=== PATIENT | female | born 1965 | race Caucasian/White ===

== ENCOUNTER 2017-05-18 10:00 | Emergency (ER) | payer BC, OTHER ==
[2017-05-18] MEDS ORDERED: METOCLOPRAMIDE HCL 10 MG TABLET PO ONE (10:37)
[2017-05-18] MEDS ORDERED: KETOROLAC TROMETHAMINE 60 MG/2 ML SDV IM ONE (10:37)
--- NOTE | 2017-05-18 10:39 | ER Document Report ---
ED General - General Chief Complaint: Flank Pain Stated Complaint: URINARY SYMPTOMS Time Seen by Provider: 05/18/17 10:29 Mode of Arrival: Ambulatory Information source: Patient Notes: 52-year-old female presents with complaints of right flank pain with hematuria. Patient notes she was diagnosed with a UTI a few days prior was placed on Bactrim. She denies any fevers admits to nausea TRAVEL OUTSIDE OF THE [place] IN LAST 30 DAYS: No - HPI Onset: Last week Onset/Duration: Persistent Quality of pain: Achy Severity: Mild Pain Level: 1 Associated symptoms: Nausea Exacerbated by: Supine Relieved by: Denies Similar symptoms previously: Yes Recently seen / treated by doctor: Yes - Related Data Allergies/Adverse Reactions: bacitracin [From Neosporin] Allergy (Verified 05/18/17 10:05) bacitracin zinc [From Neosporin] Allergy (Verified 05/18/17 10:05) codeine [Codeine] Allergy (Verified 05/18/17 10:05) gramicidin D [From Neosporin] Allergy (Verified 05/18/17 10:05) neomycin sulfate [From Neosporin] Allergy (Verified 05/18/17 10:05) polymyxin B [From Neosporin] Allergy (Verified 05/18/17 10:05) polymyxin B sulfate [From Neosporin] Allergy (Verified 05/18/17 10:05) Past Medical History - Social History Smoking Status: Never Smoker Cigarette use (# per day): No Chew tobacco use (# tins/day): No Smoking Education Provided: No Frequency of alcohol use: None Drug Abuse: None Family History: Reviewed & Not Pertinent Renal/ Medical History: Denies: Hx Peritoneal Dialysis Past Surgical History: Reports: Hx Cholecystectomy, Hx Hysterectomy - Immunizations Hx Diphtheria, Pertussis, Tetanus Vaccination: Yes Review of Systems - Review of Systems Notes: REVIEW OF SYSTEMS: CONSTITUTIONAL : Denies fever, chills, or sweats. Denies recent illness. EENT: Denies eye, ear, throat, or mouth pain or symptoms. Denies nasal or sinus congestion or discharge. Denies throat, tongue, or mouth swelling or difficulty swallowing. CARDIOVASCULAR: Denies chest pain. Denies palpitations or racing or irregular heart beat. Denies ankle edema. RESPIRATORY: Denies cough, cold, or chest congestion. Denies shortness of breath, difficulty breathing, or wheezing. GASTROINTESTINAL: D admits to right flank pain GENITOURINARY: Admits to blood in the urine FEMALE GENITOURINARY: Denies vaginal bleeding, heavy or abnormal periods, irregular periods. Denies vaginal discharge or odor. MUSCULOSKELETAL: Denies back or neck pain or stiffness. Denies joint pain or swelling. SKIN: Denies rash, lesions or sores. HEMATOLOGIC : Denies easy bruising or bleeding. LYMPHATIC: Denies swollen, enlarged glands. NEUROLOGICAL: Denies confusion or altered mental status. Denies passing out or loss of consciousness. Denies dizziness or lightheadedness. Denies headache. Denies weakness or paralysis or loss of use of either side. Denies problems with gait or speech. Denies sensory loss, numbness, or tingling. Denies seizures. PSYCHIATRIC: Denies anxiety or stress. Denies depression, suicidal ideation, or homicidal ideation. ALL OTHER SYSTEMS REVIEWED AND NEGATIVE. PHYSICAL EXAMINATION: GENERAL: Well-appearing, well-nourished and in no acute distress. HEAD: Atraumatic, normocephalic. EYES: Pupils equal round and reactive to light, extraocular movements intact, conjunctiva are normal. ENT: Nares patent, oropharynx clear without exudates. Moist mucous membranes. NECK: Normal range of motion, supple without lymphadenopathy LUNGS: Breath sounds clear to auscultation bilaterally and equal. No wheezes rales or rhonchi. HEART: Regular rate and rhythm without murmurs ABDOMEN: Soft, nontender, nondistended abdomen. No guarding, no rebound. No masses appreciated. Patient has positive right CVA tenderness Female : deferred Musculoskeletal: Normal range of motion, no pitting or edema. No cyanosis. NEUROLOGICAL: Cranial nerves grossly intact. Normal speech, normal gait. Normal sensory, motor exams PSYCH: Normal mood, normal affect. SKIN: Warm, Dry, normal turgor, no rashes or lesions noted. Dictation was performed using [employer] voice recognition software Physical Exam - Vital signs Vitals: Temp Pulse Resp BP Pulse Ox 98.4 F 72 18 119/77 99 05/18/17 10:05 05/18/17 10:05 05/18/17 10:05 05/18/17 10:05 05/18/17 10:05 Course - Re-evaluation Re-evalutation: 05/18/17 10:39 Patient has probable pyelonephritis given her complaints, CT is pending to rule out an infected stone otherwise she looks quite well vital signs are stable 05/18/17 12:05 Patient has positive nitrites CT is normal We will treat with Cipro culture urine After performing a Medical Screening Examination, I estimate there is LOW risk for ACUTE APPENDICITIS, BOWEL OBSTRUCTION, ACUTE CHOLECYSTITIS, PERFORATED DIVERTICULITIS, INCARCERATED HERNIA, PANCREATITIS, PELVIC INFLAMMATORY DISEASE, PERFORATED ULCER, ECTOPIC , or TUBO-OVARIAN ABSCESS, thus I consider the discharge disposition reasonable. Also, there is no evidence or peritonitis , sepsis, or toxicity. I have reevaluated this patient multiple times and no significant life threatening changes are noted. The patient and I have discussed the diagnosis and risks, and we agree with discharging home with close follow-up with the understanding that symptoms and presentations can change. We also discussed returning to the Emergency Department immediately if new or worsening symptoms occur. We have discussed the symptoms which are most concerning (e.g., bloody stool, fever, changing or worsening pain, vomiting) that necessitate immediate return. - Vital Signs Vital signs: Temp Pulse Resp BP Pulse Ox 98.4 F 72 18 119/77 99 05/18/17 10:05 05/18/17 10:05 05/18/17 10:05 05/18/17 10:05 05/18/17 10:05 - Laboratory Laboratory results interpreted by me: 05/18/17 10:45 Urine Nitrite POSITIVE H Urine Urobilinogen 4.0 H - Diagnostic Test Radiology reviewed: Image reviewed, Reports reviewed - no acute abnormality Discharge - Discharge Clinical Impression: Pyelonephritis, Flank pain Condition: Stable Disposition: HOME, SELF-CARE Instructions: Pyelonephritis ([facility]) Additional Instructions: Follow up with your physician tomorrow for further care or return to the ED IMMEDIATELY if symptoms worsen or new concerns occur. If you cannot afford to follow up with your primary care physician a list of low cost clinics have been provided at the end of your discharge papers as well. Prescriptions: Ciprofloxacin HCl [Cipro 500 mg Tablet] 500 mg PO BID #20 tablet Hydrocodone/Acetaminophen [Eldred 5-325 mg Tablet] 1 tab PO Q6 #10 tablet
[2017-05-18 11:28] LABS: APPEARANCE,URINE CLEAR; BILIRUBIN,URINE NEGATIVE (NEGATIVE); GLUCOSE, URINE NEGATIVE (NEGATIVE); KETONES,URINE NEGATIVE (NEGATIVE); LEUKOCYTE ESTERASE,URINE NEGATIVE (NEGATIVE); NITRITE,URINE POSITIVE (NEGATIVE); PROTEIN,URINE NEGATIVE (NEGATIVE); URINE SPECIFIC GRAVITY 1.015
--- NOTE | 2017-05-18 12:03 | RADIOLOGY REPORT (SQ) ---
EXAM DESCRIPTION: CT LTD RENAL STONE PROTOCOL ON COMPLETED DATE/TIME: 05/18/2017 11:06 am REASON FOR STUDY: right flank pain, dx of uti COMPARISON: CT abdomen pelvis 12/28/2013 TECHNIQUE: CT scan of the abdomen and pelvis performed without intravenous or oral contrast. Images reviewed with lung, soft tissue, and bone windows. Reconstructed coronal and sagittal MPR images revi ewed. All images stored on PACS. All CT scanners at this facility use dose modulation, iterative reconstruction, and/or weight based d osing when appropriate to reduce radiation dose to as low as reasonably achievable (ALARA). [facility]: Dose Right [facility]: CareDose [facility]: Dose Right [facility]: Teradose 4D [facility]: Smart 4tiitoo RADIATION DOSE: Up-to-date CT equipment and radiation dose reduction techniques were employed. CTDIv ol: 7.4 mGy. DLP: 398 mGy-cm.mGy. LIMITATIONS: None. FINDINGS: LOWER CHEST: No significant findings. No nodules or infiltrates. NON-CONTRASTED LIVER, SPLEEN, ADRENALS: Evaluation limited by lack of IV contrast. No identified sign ificant masses. PANCREAS: No masses. No peripancreatic inflammatory changes. GALLBLADDER: Surgically absent RIGHT KIDNEY AND URETER: No suspicious masses. Assessment limited by lack of IV contrast. No signif icant calcifications. No hydronephrosis or hydroureter. LEFT KIDNEY AND URETER: No suspicious masses. Assessment limited by lack of IV contrast. No signifi cant calcifications. No hydronephrosis or hydroureter. AORTA AND RETROPERITONEUM: No aneurysm. No retroperitoneal masses or adenopathy. BOWEL AND PERITONEAL CAVITY: No obvious masses or inflammatory changes. No free fluid. APPENDIX: Normal. PELVIS, BLADDER, AND ABDOMINAL WALL:No abnormal masses. No free fluid. Bladder normal. Post hysterec manuel BONES: No significant findings. OTHER: No other significant finding. IMPRESSION: NO SIGNIFICANT OR ACUTE PROCESS IN THE ABDOMEN OR PELVIS. COMMENT: Quality ID # [id number]: Final reports with documentation of one or more dose reduction techniques (e.g., Automated exposure control, adjustment of the mA and/or kV according to patient size, use of iterative reconstruction technique) TECHNICAL DOCUMENTATION: JOB ID: [id number]- All Rights Reserved
[2017-05-18 12:35] VITALS: BP 119/66
== END 2017-05-18 12:10 | disposition home or self-care (01) ==
LOC: ER 10:00
DX: N12 Tubulo-interstitial nephritis, not specified as acute or chronic (principal); R10.9 Unspecified abdominal pain; R39.198 Other difficulties with micturition; R31.9 Hematuria, unspecified
CPT/HCPCS: 99284; 96372; 87086; 81025; 81001; 76380; J1885

== ENCOUNTER → 2018-03-10 | Outpatient (CLI) | payer OTHER ==
[2018-03-10 14:34] LABS: ABSOLUTE EOSINOPHILS # (AUTO) 0.1 10^3/uL (0.0-0.6); ABSOLUTE LYMPHOCYTES (AUTO) 2.3 10^3/uL (0.5-4.7); ABSOLUTE MONOCYTES (AUTO) 0.4 10^3/uL (0.1-1.4); ABSOLUTE NEUT (AUTO) 3.5 10^3/uL (1.7-8.2); BASOPHILS % (AUTO) 0.6 % (0-2); EOSINOPHILS % (AUTO) 1.6 % (0-6); HEMOGLOBIN 14.7 g/dL (12.0-15.5); LYMPHOCYTES % (AUTO) 35.6 % (13-45); MEAN CORPUSCULAR HEMOGLOBIN 27.8 pg (27.0-33.4); MEAN CORPUSCULAR HGB CONC 34.2 g/dL (32.0-36.0); MEAN CORPUSCULAR VOLUME 81 fl (80-97); MONOCYTES % (AUTO) 6.7 % (3-13); PLATELET COUNT 203 10^3/uL (150-450); RED BLOOD COUNT 5.28 10^6/uL (3.72-5.28); RED CELL DISTRIBUTION WIDTH 13.4 % (11.5-14.0); SEGMENTED NEUTROPHILS % (AUTO) 55.5 % (42-78); TOTAL CELLS COUNTED % (AUTO) 100 %; WHITE BLOOD COUNT 6.4 10^3/uL (4.0-10.5)
--- NOTE | 2018-03-10 14:35 | RADIOLOGY REPORT (SQ) ---
EXAM DESCRIPTION: CHEST PA/LATERAL COMPLETED DATE/TIME: 03/10/2018 2:27 pm REASON FOR STUDY: CHEST PAIN; HEART PALPITATIONS COMPARISON: None. EXAM PARAMETERS: NUMBER OF VIEWS: two views TECHNIQUE: Digital Frontal and Lateral radiographic views of the chest acquired. RADIATION DOSE: NA LIMITATIONS: none FINDINGS: LUNGS AND PLEURA: No opacities, masses or pneumothorax. No pleural effusion. MEDIASTINUM AND HILAR STRUCTURES: No masses or contour abnormalities. HEART AND VASCULAR STRUCTURES: Heart normal size. No evidence for failure. BONES: No acute findings. HARDWARE: None in the chest. OTHER: No other significant finding. IMPRESSION: NO SIGNIFICANT RADIOGRAPHIC FINDING IN THE CHEST. TECHNICAL DOCUMENTATION: JOB ID: [id number] [employer]- All Rights Reserved Reading location - IP/workstation name: [email or web address]
[2018-03-10 14:47] LABS: ALANINE AMINOTRANSFERASE 19 U/L (9-52); ALKALINE PHOSPHATASE 61 U/L (38-126); ANION GAP 13 (5-19); ASPARTATE AMINO TRANSFERASE 15 U/L (14-36); BILIRUBIN,DIRECT 0.2 mg/dL (0.0-0.4); BILIRUBIN,TOTAL 0.4 mg/dL (0.2-1.3); BLOOD UREA NITROGEN 11 mg/dL (7-20); CALCIUM 9.2 mg/dL (8.4-10.2); CARBON DIOXIDE 25 mmol/L (22-30); CHLORIDE 106 mmol/L (98-107); GLUCOSE 88 mg/dL (75-110); POTASSIUM 4.1 mmol/L (3.6-5.0); SODIUM 144.3 mmol/L (137-145); TOTAL PROTEIN 6.5 g/dL (6.3-8.2)
[2018-03-10 14:57] LABS: CREATINE KINASE MB 0.56 ng/mL (<4.55); TROPONIN I < 0.012 ng/mL
== END ==
LOC: OD 13:54
PROVIDERS: ATTEND Nurse Practitioner Primary Care
DX: R07.9 Chest pain, unspecified (principal); R00.2 Palpitations
CPT/HCPCS: 36415; 71046; 80053; 82553; 84484; 85025

== ENCOUNTER → 2019-02-28 | Outpatient (CLI) | payer OTHER ==
--- NOTE | 2019-02-28 14:03 | RADIOLOGY REPORT (SQ) ---
EXAM DESCRIPTION: SACROILIAC JOINTS 3 OR MORE COMPLETED DATE/TIME: 02/28/2019 1:41 pm REASON FOR STUDY: M46.1 SACROILIITIS, NOT ELSEWHERE CLASSIFIED M46.1 SACROILIITIS, NOT ELSEWHERE CL ASSIFIED M25.551 PAIN IN RIGHT HIP R26.2 DIFFICULTY IN WALKING, NOT ELSEWHERE CLASSIFIED COMPARISON: Right hip films 02/28/2019 Lumbar spine films 02/28/2019 CT abdomen pelvis 05/18/2017 NUMBER OF VIEWS: Three views. TECHNIQUE: AP and oblique views of the sacroiliac joints. LIMITATIONS: None. FINDINGS: MINERALIZATION: Osteopenic. BONES: No acute fracture or dislocation. No worrisome bone lesions. No significant osteophytes. JOINTS: The sacroiliac joints are patent. No unusual widening, sclerosis, or fusion. SOFT TISSUES: No soft tissue swelling. No radio-opaque foreign body. OTHER: No other significant finding. IMPRESSION: NORMAL STUDY OF THE SACROILIAC JOINTS. TECHNICAL DOCUMENTATION: JOB ID: [id number] [employer]- All Rights Reserved Reading location - IP/workstation name: [email or web address]
--- NOTE | 2019-02-28 14:05 | RADIOLOGY REPORT (SQ) ---
EXAM DESCRIPTION: HIP RIGHT AP/LATERAL COMPLETED DATE/TIME: 02/28/2019 1:44 pm REASON FOR STUDY: M25.551 PAIN IN RIGHT HIP M46.1 SACROILIITIS, NOT ELSEWHERE CLASSIFIED M25.551 P AIN IN RIGHT HIP R26.2 DIFFICULTY IN WALKING, NOT ELSEWHERE CLASSIFIED COMPARISON: Sacrum and SI joints, lumbar spine plain films same date NUMBER OF VIEWS: Two views. TECHNIQUE: AP pelvis and additional frog-leg view of the right hip. LIMITATIONS: None. FINDINGS: MINERALIZATION: Osteopenic RIGHT HIP: No fracture or dislocation. No worrisome bone lesions. No significant joint space narrow ing or bulky bony spurring. LEFT HIP: No fracture or dislocation. No worrisome bone lesions. No significant joint space narrowi ng or bulky bony spurring. PUBIS AND ISCHIUM: No fracture. PELVIS: No fracture. SACRUM: No fracture or dislocation. No worrisome bone lesions. SOFT TISSUES: No findings. OTHER: No other significant finding. IMPRESSION: NEGATIVE STUDY OF THE RIGHT HIP. NO RADIOGRAPHIC EVIDENCE OF ACUTE INJURY. TECHNICAL DOCUMENTATION: JOB ID: [id number] [employer]- All Rights Reserved Reading location - IP/workstation name: [email or web address]
--- NOTE | 2019-02-28 14:06 | RADIOLOGY REPORT (SQ) ---
EXAM DESCRIPTION: L SPINE WHOLE COMPLETED DATE/TIME: 02/28/2019 1:44 pm REASON FOR STUDY: M46.1 SACROILIITIS, NOT ELSEWHERE CLASSIFIED M46.1 SACROILIITIS, NOT ELSEWHERE CL ASSIFIED M25.551 PAIN IN RIGHT HIP R26.2 DIFFICULTY IN WALKING, NOT ELSEWHERE CLASSIFIED COMPARISON: SI joints, hip films same date NUMBER OF VIEWS: Five views including obliques. TECHNIQUE: AP, lateral, oblique, and sacral radiographic images acquired of the lumbar spine. LIMITATIONS: None. FINDINGS: MINERALIZATION: Osteopenic SEGMENTATION: Normal. No transitional anatomy. ALIGNMENT: Normal. VERTEBRAE: Maintained height. No fracture or worrisome bone lesion. DISCS: Preserved height. No significant osteophytes or end plate irregularity. POSTERIOR ELEMENTS: Pedicles and facets are intact. No pars defect or posterior arch defects. Mild bilateral facet arthropathy at L4-5 and L5-S1 HARDWARE: None in the spine. PARASPINAL SOFT TISSUES: Clips right upper quadrant post cholecystectomy OTHER: No other significant finding. IMPRESSION: Lower lumbar facet arthropathy at L4-5 and L5-S1 TECHNICAL DOCUMENTATION: JOB ID: [id number] [employer]- All Rights Reserved Reading location - IP/workstation name: [email or web address]
== END ==
LOC: RAD 12:38
PROVIDERS: ATTEND Nurse Practitioner Primary Care
DX: M46.1 Sacroiliitis, not elsewhere classified (principal); M25.551 Pain in right hip; R26.2 Difficulty in walking, not elsewhere classified
CPT/HCPCS: 72110; 72202

== ENCOUNTER 2019-10-10 16:09 | Emergency (ER) | payer OTHER ==
[2019-10-10 16:46] VITALS: BP 120/74
--- NOTE | 2019-10-10 17:10 | ER Document Report ---
ED ENT - General Chief Complaint: Fever Stated Complaint: FEVER,EAR PAIN Time Seen by Provider: 10/10/19 16:26 Primary Care Provider: ANABELA GANDHI NP [Primary Care Provider] - Follow up as needed Mode of Arrival: Ambulatory Information source: Patient Notes: 54-year-old female presented to ED for complaint of cough cold congestion with fluid behind the right eardrum. She states she was just seen at her primary care doctor and treated for pneumonia was amoxicillin. She states she has 2 pills left and then she will be completed the antibiotics. She does have cough and cold. Lung sounds are clear to auscultation respirations are regular nonlabored vital signs are stable. She states she went to the primary care doctor he told her that that was all he could do for her that if she wanted to get tested for viruses she would need to go to the emergency room. I have explained to her even if she was positive for flu that it is past the time when she could get treated for that that now it is just symptom control. TRAVEL OUTSIDE OF THE [place] IN LAST 30 DAYS: No - HPI Patient complains to provider of: Ear problem, Nose problem, Throat problem Onset: Last week Onset/Duration: Persistent Quality of pain: Achy Severity: Moderate Pain Level: 3 Context: Recent Illness Location of pain: Ears, Sinus, Throat Associated symptoms: Congestion, Cough, Ear pain, Runny nose, Sinus pain, Sinus drainage, Sore throat Similar symptoms previously: Yes Recently seen / treated by doctor: Yes - Related Data Allergies/Adverse Reactions: bacitracin [From Neosporin] Allergy (Verified 10/10/19 17:07) bacitracin zinc [From Neosporin] Allergy (Verified 10/10/19 17:07) gramicidin D [From Neosporin] Allergy (Verified 10/10/19 17:07) neomycin sulfate [From Neosporin] Allergy (Verified 10/10/19 17:07) polymyxin B [From Neosporin] Allergy (Verified 10/10/19 17:07) polymyxin B sulfate [From Neosporin] Allergy (Verified 10/10/19 17:07) codeine [Codeine] Adverse Reaction (Intermediate, Verified 10/10/19 17:07) GI upset Past Medical History - General Information source: Patient - Social History Smoking Status: Never Smoker Frequency of alcohol use: None Drug Abuse: None Lives with: Family Family History: Reviewed & Not Pertinent Patient has suicidal ideation: No Patient has homicidal ideation: No - Past Medical History Cardiac Medical History: Reports: None Pulmonary Medical History: Reports: Hx Bronchitis, Hx Pneumonia EENT Medical History: Reports: None Neurological Medical History: Reports: None Endocrine Medical History: Reports: None Renal/ Medical History: Reports: None Malignancy Medical History: Reports: None GI Medical History: Reports: None Musculoskeletal Medical History: Reports Hx Arthritis, Reports Hx Musculoskeletal Deformity, Reports Hx Musculoskeletal Trauma Skin Medical History: Reports None Psychiatric Medical History: Reports: None Traumatic Medical History: Reports: Hx Fractures - Wrist toes Infectious Medical History: Reports: None Past Surgical History: Reports: Hx Cholecystectomy, Hx Gynecologic Surgery - Endometriosis, Hx Hysterectomy, Hx Oral Surgery - TMJ, Hx Orthopedic Surgery - Finger surgery - Immunizations Hx Diphtheria, Pertussis, Tetanus Vaccination: Yes Review of Systems - Review of Systems Constitutional: Chills, Recent illness EENT: Nose congestion, Nose discharge, Sinus pressure, Sinus discharge, Throat pain Cardiovascular: No symptoms reported Respiratory: Cough Gastrointestinal: No symptoms reported Genitourinary: No symptoms reported Female Genitourinary: No symptoms reported Musculoskeletal: No symptoms reported Skin: No symptoms reported Hematologic/Lymphatic: No symptoms reported Neurological/Psychological: No symptoms reported -: Yes All other systems reviewed and negative Physical Exam - Vital signs Vitals: Temp Pulse Resp BP Pulse Ox 98.8 F 77 20 120/74 99 10/10/19 16:45 10/10/19 16:45 10/10/19 16:45 10/10/19 16:45 10/10/19 16:45 Interpretation: Normal - General General appearance: Appears well, Alert - HEENT Head: Normocephalic, Atraumatic Eyes: Normal Pupils: PERRL Ears: Normal External canal: Normal Tympanic membrane: Normal Sinus: Normal Nasal: Purulent discharge, Swelling Mouth/Lips: Normal Mucous membranes: Normal Pharynx: Post nasal drainage Neck: Normal - Respiratory Respiratory status: No respiratory distress Chest status: Nontender Breath sounds: Nonproductive cough Chest palpation: Normal - Cardiovascular Rhythm: Regular Heart sounds: Normal auscultation Murmur: No - Abdominal Inspection: Normal Distension: No distension Bowel sounds: Normal Tenderness: Nontender Organomegaly: No organomegaly - Back Back: Normal, Nontender - Extremities General upper extremity: Normal inspection, Nontender, Normal color, Normal ROM, Normal temperature General lower extremity: Normal inspection, Nontender, Normal color, Normal ROM, Normal temperature, Normal weight bearing. No: Katt's sign - Neurological Neuro grossly intact: Yes Cognition: Normal Orientation: AAOx4 [place] Coma Scale Eye Opening: Spontaneous [place] Coma Scale Verbal: Oriented [place] Coma Scale Motor: Obeys Commands [place] Coma Scale Total: 15 Speech: Normal Motor strength normal: LUE, RUE, LLE, RLE Sensory: Normal - Psychological Associated symptoms: Normal affect, Normal mood - Skin Skin Temperature: Warm Skin Moisture: Dry Skin Color: Normal Course - Re-evaluation Re-evalutation: 10/10/19 17:16 After performing a Medical Screening Examination, I estimate there is LOW risk for ACUTE CORONARY SYNDROME, RESPIRATORY FAILURE, SEPSIS OR MENINGITIS, thus I consider the discharge disposition reasonable. I have reevaluated this patient multiple times and no significant life threatening changes are noted. The patient and I have discussed the diagnosis and risks, and we agree with discharging home with close follow-up. We also discussed returning to the Emergency Department immediately if new or worsening symptoms occur. We have discussed the symptoms which are most concerning (e.g., changing or worsening pain, trouble swallowing or breathing, neck stiffness, fever) that necessitate immediate return. - Vital Signs Vital signs: Temp Pulse Resp BP Pulse Ox 98.8 F 77 20 120/74 99 10/10/19 16:45 10/10/19 16:45 10/10/19 16:45 10/10/19 16:45 10/10/19 16:45 Discharge - Discharge Clinical Impression: Otalgia of right ear, Viral sore throat URI (upper respiratory infection) Qualifiers: URI type: unspecified viral URI Qualified Code(s): J06.9 - Acute upper respiratory infection, unspecified Condition: Stable Disposition: HOME, SELF-CARE Additional Instructions: UPPER RESPIRATORY ILLNESS: You have a viral infection of the respiratory passages -- a "cold." This common infection causes nasal congestion, drainage, and often sore throat and cough. It is highly contagious. The disease usually lasts about 10 to 14 days. There is no "cure" for the viral infection -- it must run its course. If there is a complication, such as bacterial infection in the nose, sinuses, middle ear, or bronchial tubes, antibiotics may be required. The antibiotics won't affect the virus. Drink plenty of fluids. A humidifier may help. An expectorant medication or decongestant may make you more comfortable. Use acetaminophen or ibuprofen for fever or aches. See the doctor if fever persists over two days, if there is any significant worsening of your symptoms, or if you simply fail to improve as expected. You have been recommended treatment with Claritin 10 mg Sudafed 30 mg and Mucinex 600 mg. These are all ilsr-bla-[id number] medications for cough cold congestion. You do need to call the go to the pharmacist to get the Sudafed from behind the counter please get a little red pills they are more effective. You could also use Flonase which is wjlr-yye-[id number] 1 spray each nostril twice a day. You could also use salt soda solution gargles. These will help to remove the drainage from the back your throat. Chloraseptic spray was over -the-counter that will also help with your sore throat. Salt and soda solution gargle 1 quart of water 1 tablespoon of salt 1 teaspoon of baking soda Mixed 3 ingredients together and boil for 1 minute Placed in a covered quart jar Use 1/2 ounce of cold solution to gargle 3 times a day USE OF ACETAMINOPHEN (Tylenol): Acetaminophen may be taken for pain relief or fever control. It's much saf er than aspirin, offering a wider range of "safe" dosages. It is safe during . Some brand names are Tylenol, Panadol, Datril, Anacin 3, Tempra, and Liquiprin. Acetaminophen can be repeated every four hours. The following are maximum recommended dosages: >89 pounds or adults 650 mg to 900 mg Acetaminophen can be repeated every four hours. Maximum dose not to exceed 4000 mg a day. FOLLOW-UP CARE: If you have been referred to a physician for follow-up care, call the physicians office for an appointment as you were instructed or within the next two days. If you experience worsening or a significant change in your symptoms, notify the physician immediately or return to the Emergency Department at any time for re-evaluation. Referrals: ANABELA GANDHI NP [Primary Care Provider] - Follow up as needed
[2019-10-10] MEDS ORDERED: PSEUDOEPHEDRINE HCL 30 MG TABLET PO ONE (17:14)
[2019-10-10] MEDS ORDERED: GUAIFENESIN 600 MG TABLET.SA PO ONE (17:14)
[2019-10-10] MEDS ORDERED: LORATADINE 10 MG TABLET PO ONE (17:14)
== END 2019-10-10 17:22 | disposition home or self-care (01) ==
LOC: ER 16:09
DX: J02.8 Acute pharyngitis due to other specified organisms (principal); B97.89 Other viral agents as the cause of diseases classified elsewhere; J18.9 Pneumonia, unspecified organism; H92.01 Otalgia, right ear; R05 Cough; R68.83 Chills (without fever); R09.81 Nasal congestion; R09.82 Postnasal drip; Z88.1 Allergy status to other antibiotic agents
CPT/HCPCS: 99283

== ENCOUNTER 2020-09-02 17:17 | Emergency (ER) | payer OTHER ==
[2020-09-02] MEDS ORDERED: DIPHENHYDRAMINE HCL 50 MG/ML VIAL IV ONE (18:14)
[2020-09-02] MEDS ORDERED: METOCLOPRAMIDE HCL INJ/PF 10 MG/2 ML SDV IV ONE (18:14)
[2020-09-02] MEDS ORDERED: NORMAL SALINE 1000 ML 1,000 ML IV ONE (18:14)
[2020-09-02] MEDS ORDERED: KETOROLAC TROMETHAMINE INJ/PF 30 MG/1 ML SDV IV ONE (18:15)
--- NOTE | 2020-09-02 18:17 | ER Document Report ---
ED Medical Screen (RME) - General Chief Complaint: Headache Stated Complaint: HEADACHE Time Seen by Provider: 09/02/20 18:07 Primary Care Provider: ANABELA GANDHI NP [Primary Care Provider] - Follow up as needed Notes: HPI: 55-year-old female history of daily headaches for the last 3 months. States that she had fainting spells and had a tilt table test and since that day in May has had daily headaches. Has followed with her primary care provider who has indicated she has migraines and was placed on Maxalt and sumatriptan, those medications do help the headache temporarily the headaches come back. Patient states that at times with the headaches she will say her words backwards, she will walk as if she is drunk, no chest pain no shortness of breath. Today the headache was worse than normal so she came to the emergency department. States that her doctor has not had imaging done such as CT or MRI at this point and she is waiting for a referral to neurology PHYSICAL EXAMINATION: Patient is able to walk to the room with a normal gait. No facial droop. No slurred speech. Patient is able to give me a cognizant history. Patient is able to move all extremities equally. I have greeted and performed a rapid initial assessment of this patient. A comprehensive ED assessment and evaluation of the patient, analysis of test results and completion of medical decision making process will be conducted by an additional ED providers. Please note that clinical decision making for this patient was made during the 2019 pandemic of novel coronavirus which caused a significant strain on the healthcare system including at this particular facility. Criteria for admission discharge and level of care decisions as well as treatment decisions have necessarily changed TRAVEL OUTSIDE OF THE [place] IN LAST 30 DAYS: No - Related Data Allergies/Adverse Reactions: bacitracin [From Neosporin] Allergy (Verified 10/10/19 17:07) bacitracin zinc [From Neosporin] Allergy (Verified 10/10/19 17:07) gramicidin D [From Neosporin] Allergy (Verified 10/10/19 17:07) neomycin sulfate [From Neosporin] Allergy (Verified 10/10/19 17:07) polymyxin B [From Neosporin] Allergy (Verified 10/10/19 17:07) polymyxin B sulfate [From Neosporin] Allergy (Verified 10/10/19 17:07) codeine [Codeine] Adverse Reaction (Intermediate, Verified 10/10/19 17:07) GI upset Past Medical History Pulmonary Medical History: Reports: Hx Bronchitis, Hx Pneumonia Renal/ Medical History: Denies: Hx Peritoneal Dialysis Musculoskeltal Medical History: Reports Hx Arthritis, Reports Hx Musculoskeletal Deformity, Reports Hx Musculoskeletal Trauma Traumatic Medical History: Reports: Hx Fractures - Wrist toes Past Surgical History: Reports: Hx Cholecystectomy, Hx Gynecologic Surgery - Endometriosis, Hx Hysterectomy, Hx Oral Surgery - TMJ, Hx Orthopedic Surgery - Finger surgery - Immunizations Hx Diphtheria, Pertussis, Tetanus Vaccination: Yes Physical Exam - Vital signs Vitals: Temp Pulse Resp BP Pulse Ox 97.5 F 78 16 147/103 H 99 09/02/20 17:43 09/02/20 17:43 09/02/20 17:43 09/02/20 17:43 09/02/20 17:43 Course - Vital Signs Vital signs: Temp Pulse Resp BP Pulse Ox 97.5 F 78 16 147/103 H 99 09/02/20 17:43 09/02/20 17:43 09/02/20 17:43 09/02/20 17:43 09/02/20 17:43 Doctor's Discharge - Discharge Referrals: ANABELA GANDHI DIRECTOR MUSIC [Primary Care Provider] - Follow up as needed
[2020-09-02 19:08] LABS: ABSOLUTE BASOPHILS # (AUTO) 0.1 10^3/uL (0.0-0.2); ABSOLUTE EOSINOPHILS # (AUTO) 0.1 10^3/uL (0.0-0.6); ABSOLUTE LYMPHOCYTES (AUTO) 2.7 10^3/uL (0.5-4.7); ABSOLUTE MONOCYTES (AUTO) 0.4 10^3/uL (0.1-1.4); ABSOLUTE NEUT (AUTO) 4.4 10^3/uL (1.7-8.2); BASOPHILS % (AUTO) 1.5 % (0-2); EOSINOPHILS % (AUTO) 1.5 % (0-6); HEMOGLOBIN 14.2 g/dL (12.0-15.5); LYMPHOCYTES % (AUTO) 34.9 % (13-45); MEAN CORPUSCULAR HEMOGLOBIN 27.3 pg (27.0-33.4); MEAN CORPUSCULAR HGB CONC 33.7 g/dL (32.0-36.0); MEAN CORPUSCULAR VOLUME 81 fl (80-97); MONOCYTES % (AUTO) 5.7 % (3-13); PLATELET COUNT 225 10^3/uL (150-450); RED BLOOD COUNT 5.18 10^6/uL (3.72-5.28); RED CELL DISTRIBUTION WIDTH 14.4 % (11.5-14.0); SEGMENTED NEUTROPHILS % (AUTO) 56.4 % (42-78); TOTAL CELLS COUNTED % (AUTO) 100 %; WHITE BLOOD COUNT 7.7 10^3/uL (4.0-10.5)
[2020-09-02 19:25] LABS: ALBUMIN 3.9 g/dL (3.5-5.0); ALKALINE PHOSPHATASE 80 U/L (38-126); ANION GAP 5 (5-19); ASPARTATE AMINO TRANSFERASE 18 U/L (14-36); BILIRUBIN,DIRECT 0.2 mg/dL (0.0-0.4); BILIRUBIN,TOTAL 0.2 mg/dL (0.2-1.3); BLOOD UREA NITROGEN 13 mg/dL (7-20); CALCIUM 9.4 mg/dL (8.4-10.2); CARBON DIOXIDE 27 mmol/L (22-30); CHLORIDE 109 mmol/L (98-107); GLUCOSE 88 mg/dL (75-110); POTASSIUM 4.5 mmol/L (3.6-5.0); TOTAL PROTEIN 6.7 g/dL (6.3-8.2)
--- NOTE | 2020-09-02 19:40 | RADIOLOGY REPORT (SQ) ---
EXAM DESCRIPTION: CT HEAD WITHOUT IMAGES COMPLETED DATE/TIME: 09/02/2020 6:21 pm REASON FOR STUDY: headache COMPARISON: None. TECHNIQUE: Axial images acquired through the brain without intravenous contrast. Images reviewed wi th bone, brain and subdural windows. Additional sagittal and coronal reconstructions were generated. Images stored on PACS. All CT scanners at this facility use dose modulation, iterative reconstruction, and/or weight based d osing when appropriate to reduce radiation dose to as low as reasonably achievable (ALARA). [facility]: Dose Right [facility]: CareDose [facility]: Dose Right [facility]: Teradose 4D [facility]: Smart Toothpick RADIATION DOSE: CT Rad equipment meets quality standard of care and radiation dose reduction techniq ues were employed. CTDIvol: 53.2 mGy. DLP: 1017 mGy-cm. mGy. LIMITATIONS: None. FINDINGS: VENTRICLES: Normal size and contour. CEREBRUM: No masses. No hemorrhage. No midline shift. No evidence for acute infarction. Normal gra y/white matter differentiation. No areas of low density in the white matter. CEREBELLUM: No masses. No hemorrhage. No alteration of density. No evidence for acute infarction. EXTRAAXIAL SPACES: No fluid collections. No masses. ORBITS AND GLOBE: No intra- or extraconal masses. Normal contour of globe without masses. CALVARIUM: No fracture. PARANASAL SINUSES: Chronic inspissated secretions in the right maxillary sinus. Remaining paranasal sinuses are clear. No destructive features. SOFT TISSUES: No mass or hematoma. OTHER: No other significant finding. IMPRESSION: 1. No acute intracranial hemorrhage, mass, or evidence of acute territorial infarct. 2. Chronic sinusitis right maxillary sinus. EVIDENCE OF ACUTE STROKE: NO. COMMENT: Quality ID # [id number]: Final reports with documentation of one or more dose reduction techniques (e.g., Automated exposure control, adjustment of the mA and/or kV according to patient size, use of iterative reconstruction technique) TECHNICAL DOCUMENTATION: JOB ID: [id number] [employer]- All Rights Reserved Reading location - IP/workstation name: [email or web address]
[2020-09-02] MEDS ORDERED: DIPHENHYDRAMINE HCL 50 MG/ML VIAL ONE (21:23)
[2020-09-02] MEDS ORDERED: KETOROLAC TROMETHAMINE INJ/PF 30 MG/1 ML SDV ONE (21:24)
[2020-09-02] MEDS ORDERED: METOCLOPRAMIDE HCL INJ/PF 10 MG/2 ML SDV ONE (21:24)
--- NOTE | 2020-09-02 22:30 | ER Document Report ---
ED Headache - General Chief Complaint: Headache Stated Complaint: HEADACHE Time Seen by Provider: 09/02/20 18:07 Primary Care Provider: ANABELA GANDHI NP [Primary Care Provider] - Follow up as needed Notes: 55-year-old female past medical history significant for neurocardiogenic syncope, diagnosed with migraines in May 2020 presents to the emergency room complaining of a worsening headache that started yesterday. Patient states she is been having daily headaches ever since she had her tilt test back in May to diagnose her cardiogenic syncope. Patient states that she was diagnosed with migraines by her primary care physician but had not had a CT or an MRI as of yet. States she had an MRI scheduled but had to be canceled due to COVID-19 exposure currently waiting on referral to neurology. States she is been taking Maxalt and Imitrex which is not fully relieving her headaches. States she gets partial relief but then usually has to lay down around noon for the remainder of the day until her headache goes away. States it does not keep her awake at night. She denies any sudden thunderclap. Denies worst headache of her life. Denies any head trauma or head injury. She denies any photophobia, some nausea but no vomiting. States she does have an aura prior to getting her headaches in which she feels like her body is "shaking" and then feels like her arms and face are going numb. Patient states her symptoms last until her headache starts with usually approximately 15 to 20 minutes later. TRAVEL OUTSIDE OF THE [place] IN LAST 30 DAYS: No - Related Data Allergies/Adverse Reactions: bacitracin [From Neosporin] Allergy (Verified 10/10/19 17:07) bacitracin zinc [From Neosporin] Allergy (Verified 10/10/19 17:07) gramicidin D [From Neosporin] Allergy (Verified 10/10/19 17:07) neomycin sulfate [From Neosporin] Allergy (Verified 10/10/19 17:07) polymyxin B [From Neosporin] Allergy (Verified 10/10/19 17:07) polymyxin B sulfate [From Neosporin] Allergy (Verified 10/10/19 17:07) codeine [Codeine] Adverse Reaction (Intermediate, Verified 10/10/19 17:07) GI upset Past Medical History - Social History Smoking Status: Never Smoker Frequency of alcohol use: None Drug Abuse: None Family History: Reviewed & Not Pertinent Pulmonary Medical History: Reports: Hx Bronchitis, Hx Pneumonia Renal/ Medical History: Denies: Hx Peritoneal Dialysis Musculoskeletal Medical History: Reports Hx Arthritis, Reports Hx Musculoskeletal Deformity, Reports Hx Musculoskeletal Trauma Traumatic Medical History: Reports: Hx Fractures - Wrist toes Past Surgical History: Reports: Hx Cholecystectomy, Hx Gynecologic Surgery - Endometriosis, Hx Hysterectomy, Hx Oral Surgery - TMJ, Hx Orthopedic Surgery - Finger surgery - Immunizations Hx Diphtheria, Pertussis, Tetanus Vaccination: Yes Review of Systems - Review of Systems Constitutional: No symptoms reported EENT: No symptoms reported Cardiovascular: No symptoms reported Respiratory: No symptoms reported Gastrointestinal: Nausea. denies: Abdominal pain, Diarrhea, Vomiting Genitourinary: No symptoms reported Musculoskeletal: No symptoms reported Skin: No symptoms reported Neurological/Psychological: Headaches -: Yes All other systems reviewed and negative Physical Exam - Vital signs Vitals: Temp Pulse Resp BP Pulse Ox 97.5 F 78 16 147/103 H 99 09/02/20 17:43 09/02/20 17:43 09/02/20 17:43 09/02/20 17:43 09/02/20 17:43 - General General appearance: Appears well, Alert In distress: Mild - HEENT Head: Normocephalic, Atraumatic Eyes: Normal Extraocular movements intact: Yes Pupils: PERRL Sinus: Normal - Respiratory Respiratory status: No respiratory distress Chest status: Nontender Breath sounds: Normal Chest palpation: Normal - Cardiovascular Rhythm: Regular Heart sounds: Normal auscultation Murmur: No - Neurological Neuro grossly intact: Yes Cognition: Normal Orientation: AAOx4 [place] Coma Scale Eye Opening: Spontaneous [place] Coma Scale Verbal: Oriented [place] Coma Scale Motor: Obeys Commands [place] Coma Scale Total: 15 Speech: Normal Motor strength normal: LUE, RUE, LLE, RLE Sensory: Normal - Skin Skin Temperature: Warm Skin Moisture: Dry Skin Color: Normal Course - Re-evaluation Re-evalutation: 09/02/20 22:25 Patient is currently resting comfortably states her headache is almost fully resolved. Vital signs are stable. Blood pressure has improved. Patient was counseled on the importance of outpatient follow-up with neurologist as soon as possible. Follow-up with her primary care physician this week. Continue with her current medications. Patient was given strict return to the emergency room guidelines. Return for any new or worsening symptoms. All questions were answered. Patient verbalized understanding and agrees with plan of care. 09/02/20 23:06 - Vital Signs Vital signs: Temp Pulse Resp BP Pulse Ox 97.9 F 69 18 119/66 100 09/02/20 22:39 09/02/20 22:39 09/02/20 22:39 09/02/20 22:39 09/02/20 22:39 - Laboratory Results Result Diagrams: 09/02/20 18:57 09/02/20 18:57 Laboratory Results Interpreted: 09/02/20 09/02/20 18:57 18:57 RDW 14.4 H Chloride 109 H Est GFR (MDRD) Non-Af 54 L Critical Laboratory Results Reviewed: No Critical Results - Radiology Results Critical Radiology Results Reviewed: No Critical Results Discharge - Discharge Clinical Impression: Elevated blood pressure reading without diagnosis of hypertension Headache Qualifiers: Headache type: unspecified Headache chronicity pattern: chronic headache Intractability: not intractable Qualified Code(s): R51.9 - Headache, unspecified Chronic sinusitis Qualifiers: Sinusitis location: maxillary Qualified Code(s): J32.0 - Chronic maxillary sinusitis Condition: Stable Disposition: HOME, SELF-CARE Instructions: Headache ([facility]) Additional Instructions: Continue with your current home medications. Call your primary care physician tomorrow for a follow-up appointment. Follow-up with neurology as scheduled. Return to emergency room for any new or worsening symptoms. Forms: Elevated Blood Pressure Referrals: ANABELA GANDHI NP [Primary Care Provider] - Follow up as needed
[2020-09-02 22:40] VITALS: BP 119/66
== END 2020-09-02 23:26 | disposition home or self-care (01) ==
LOC: ER 17:17
DX: G43.109 Migraine with aura, not intractable, without status migrainosus (principal); J32.0 Chronic maxillary sinusitis; R11.0 Nausea; R03.0 Elevated blood-pressure reading, without diagnosis of hypertension; Z79.899 Other long term (current) drug therapy; Z88.3 Allergy status to other anti-infective agents
CPT/HCPCS: 99285; 96360; 36415; 85025; 80053; 70450; J1200; J1885; J2765; J7030